=== PATIENT | female | born 1965 | race African-American/Black ===

== ENCOUNTER 2017-04-08 18:41 | Emergency (ER) | payer MEDICAID ==
[~2017-04-08] VITALS: Ht 160 cm; Wt 79.4 kg
[~2017-04-08 18:41] MED LIST: BACL10TA; GABA1POW27; HYDR25TA4; LOSA25TA9; POTASSIUM; TRAM50TA2
[2017-04-08] MEDS ORDERED: cloNIDine HCL 0.1 MG TAB PO ONE (19:00)
[2017-04-08 20:29] LABS: Basophils # (auto) 0.1 uL; Basophils % (auto) 0.9 % (0.0-2.0); CONDITION Y; Eosinophils # (auto) 0.1 uL; Eosinophils % (auto) 0.9 % (0.0-7.0); Hematocrit 41.6 % (36.0-46.0); Hemoglobin 13.8 g/dL (12.2-16.2); Lymphocytes # (auto) 3.6 uL; Lymphocytes % (auto) 45.4 % (10.0-50.0); Mean Corpuscular Hemoglobin 28.2 pg (28.0-32.0); Mean Corpuscular Hgb Conc. 33.2 g/dL (32.0-36.0); Mean Corpuscular Volume 85.1 fL (80.0-100.0); Mean Platelet Volume 8.6 fL (7.4-10.4); Monocytes # (auto) 0.4 uL; Neutrophils # (auto) 3.8 uL; Neutrophils % (auto) 47.8 % (37.0-80.0); Platelet Count (auto) 330 10^3/uL (140-450); Red Cell Distribution Width 16.2 % (11.6-16.0)
[2017-04-08 20:52] LABS: Albumin 3.6 g/dL (3.4-5.0); Anion Gap 11 (5-15); Aspartate Aminotransferase 17 U/L (15-37); BUN/Creatinine Ratio 16.9; Blood Urea Nitrogen 15 mg/dL (7-18); Calcium 8.5 mg/dL (8.5-10.1); Carbon Dioxide 27 mmol/L (21-32); Chloride 108 mmol/L (98-107); GFR African American 86 mL/min; GFR Non-African American 71 mL/min; Glucose 97 mg/dL (74-106); Magnesium 2.5 mg/dL (1.6-2.6); Sodium 146 mmol/L (136-145)
[2017-04-08 20:57] LABS: Alkaline Phosphatase 116 U/L (45-117); Bilirubin, Total 0.2 mg/dL (0.2-1.0); Total Protein 7.5 g/dL (6.4-8.2)
[2017-04-08 23:47] VITALS: BP 147/92
== END 2017-04-08 23:50 | disposition home or self-care (01) ==
LOC: ER 18:42
DX: I10 Essential (primary) hypertension (principal); F41.9 Anxiety disorder, unspecified; F17.210 Nicotine dependence, cigarettes, uncomplicated; Z96.653 Presence of artificial knee joint, bilateral
CPT/HCPCS: 36415; 71020; 80053; 83735; 84484; 85025

== ENCOUNTER 2020-03-02 12:56 | Emergency (ER) | payer MEDICAID ==
[~2020-03-02] VITALS: Ht 160 cm; Wt 78.5 kg
[~2020-03-02 12:56] MED LIST changes: +LOSA25TA38; -LOSA25TA9
[2020-03-02] MEDS ORDERED: diphenhdrAMINE HCL 50 MG/1 ML VL IM ONE (16:00)
[2020-03-02] MEDS ORDERED: EPINEPHrine HCL 1 MG/1 ML AMP SC ONE (16:00)
[2020-03-02 16:30] VITALS: BP 142/96
== END 2020-03-02 16:45 | disposition home or self-care (01) ==
LOC: ER 12:56
DX: T78.40XA Allergy, unspecified, initial encounter (principal); E11.9 Type 2 diabetes mellitus without complications; I10 Essential (primary) hypertension; E78.5 Hyperlipidemia, unspecified; X58.XXXA Exposure to other specified factors, initial encounter
CPT/HCPCS: 96372; 99284; J0171; J1200

== ENCOUNTER 2022-09-13 18:50 | Inpatient (IN) | payer MEDICAID ==
[~2022-09-13] VITALS: Ht 160 cm; Wt 72.3 kg
[~2022-09-13 18:50] MED LIST changes: -GABA1POW27; +GABAPOW36
[2022-09-13] MEDS ORDERED: SODIUM CHLORIDE 0.9% 500 ML IVB ONE (20:00)
[2022-09-13 20:13] LABS: Basophils # (auto) 0 10 ^3/uL (0-0.2); Eosinophils # (auto) 0 10 ^3/uL (0-0.8); Hemoglobin 11.5 g/dL (12.2-16.2); Monocytes # (auto) 0.6 10 ^3/uL (0-1.3); Nucleated Red Blood Cells % 0.7 %
[2022-09-13 20:14] LABS: Basophils % (auto) 0.5 % (0.0-2.0); Hematocrit 37.6 % (36.0-46.0); Lymphocytes # (auto) 1.4 10 ^3/uL (0.4-5.4); Lymphocytes % (auto) 14.8 % (10.0-50.0); Mean Corpuscular Hemoglobin 24.4 pg (28.0-32.0); Mean Corpuscular Hgb Conc. 30.5 g/dL (32.0-36.0); Mean Corpuscular Volume 80.2 fL (80.0-100.0); Neutrophils # (auto) 7.7 10 ^3/uL (1.6-8.6); Neutrophils % (auto) 78.7 % (37.0-80.0); Red Blood Cells 4.69 10^6/uL (4.0-5.20); Red Cell Distribution Width 18.5 % (11.8-14.3); White Blood Cell 9.8 10^3/uL (4.4-10.8)
[2022-09-13 20:28] LABS: Albumin 2.4 g/dL (3.4-5.0); BUN/Creatinine Ratio 23.7; Calcium 8.8 mg/dL (8.5-10.1); Magnesium 2.2 mg/dL (1.6-2.6); Potassium 3.8 mmol/L (3.5-5.1)
[2022-09-13 20:30] LABS: Lactic Acid w/Reflex 4.2 mmol/L (0.4-2.0)
[2022-09-13 20:31] LABS: Bilirubin, Total 2.5 mg/dL (0.2-1.0); Total Protein 6.6 g/dL (6.4-8.2)
[2022-09-13] MEDS ORDERED: SODIUM CHLORIDE 0.9% 500 ML IV ONE (22:15)
[2022-09-13 23:07] LABS: Alcohol, Urine < 3.0 mg/dL (0-10); Amphetamine Screen, Urine NEGATIVE (NEGATIVE); Barbiturate Scree,Urine NEGATIVE (NEGATIVE); Benzodiazephine Screen, Urine NEGATIVE (NEGATIVE); Cannabinoid Screen, Urine NEGATIVE (NEGATIVE); Cocaine Screen, Urine POSITIVE (NEGATIVE); Opiate Scree,Urine NEGATIVE (NEGATIVE); Phencyclidine Screen, Urine NEGATIVE (NEGATIVE)
[2022-09-13 23:29] LABS: Urine Bacteria NONE SEEN /hpf (None Seen); Urine Blood Negative /uL (Negative); Urine Hyaline Cast MOD /lpf (0 - 2); Urine Mucus FEW (None Seen); Urine Specific Gravity 1.028 (1.001-1.035); Urine WBC 10 /hpf (0 - 5); Urine WBC Clumps PRESENT /hpf (None Seen)
[2022-09-13] MEDS ORDERED: LORazepam 2MG/ML-1ML VIAL ONE (23:35)
[2022-09-13] MEDS ORDERED: LORazepam 2MG/ML-1ML VIAL IV ONE (23:45)
[2022-09-14] MEDS ORDERED: diphenhdrAMINE HCL 50 MG/1 ML VL IV ONE (01:15)
[2022-09-14] MEDS ORDERED: ONDANSETRON HCL 4 MG/2 ML VIAL IV PRN (01:30)
[2022-09-14] MEDS ORDERED: MORPHINE SULFATE INJ 2 MG/ml SYRG IV PRN (01:30)
[2022-09-14] MEDS ORDERED: FUROSEMIDE 20 MG/2 ML VIAL IV ONE (01:30)
[2022-09-14] MEDS ORDERED: NITROGLYCERIN 0.4 MG SL TAB SL PRN (01:30)
[2022-09-14] MEDS: cefTRIAXone 1GM/50ML D5W 50 ML IV SCH (03:11)
[2022-09-14] MEDS: CLINDAMYCIN 600MG IV 50 ML IV SCH ×2 (06:00→14:17)
[2022-09-14] MEDS ORDERED: PANTOPRAZOLE 40 MG TAB PO SCH (10:00)
[2022-09-14] MEDS ORDERED: FUROSEMIDE 40 MG TAB PO SCH (10:00)
[2022-09-14] MEDS ORDERED: LOSARTAN POTASSIUM 25 MG TAB PO SCH (10:00)
[2022-09-14] MEDS ORDERED: CARVEDILOL 3.125 MG TAB PO ONE (10:15)
[2022-09-14] MEDS ORDERED: FUROSEMIDE 40 MG/4 ML VIAL IV ONE (10:15)
[2022-09-14] MEDS: ENOXAPARIN SOD 40 MG/0.4 ML SYRINGE SC SCH (10:32)
[2022-09-14 13:19] LABS: Basophils # (auto) 0 10 ^3/uL (0-0.2); Eosinophils # (auto) 0 10 ^3/uL (0-0.8); Hematocrit 41.3 % (36.0-46.0); Mean Corpuscular Volume 82.9 fL (80.0-100.0); Monocytes # (auto) 0.7 10 ^3/uL (0-1.3); Red Blood Cells 4.98 10^6/uL (4.0-5.20)
[2022-09-14 13:21] LABS: Basophils % (auto) 0.1 % (0.0-2.0); Eosinophils % (auto) 0.1 % (0.0-7.0); Lymphocytes # (auto) 1.4 10 ^3/uL (0.4-5.4); Lymphocytes % (auto) 9.3 % (10.0-50.0); Monocytes % (auto) 4.8 % (0.0-12.0); Neutrophils # (auto) 12.5 10 ^3/uL (1.6-8.6); Neutrophils % (auto) 85.7 % (37.0-80.0); Nucleated Red Blood Cells % 0.8 %; Red Cell Distribution Width 18.5 % (11.8-14.3); White Blood Cell 14.6 10^3/uL (4.4-10.8)
[2022-09-14] MEDS: PANTOPRAZOLE 40 MG/10 ML VIAL INJ IV SCH (13:25)
[2022-09-14 15:06] LABS: Calcium 8.8 mg/dL (8.5-10.1); Potassium 4.2 mmol/L (3.5-5.1)
[2022-09-14 15:09] LABS: BUN/Creatinine Ratio 24.6
[2022-09-14 16:02] LABS: Folate (Folic Acid) > 24.00 ng/mL (5.38-24)
[2022-09-14] MEDS: FUROSEMIDE 40 MG/4 ML VIAL IV SCH (18:27)
[2022-09-14] MEDS ORDERED: LORazepam 2MG/ML-1ML VIAL IV PRN (21:15)
[2022-09-14 22:00] VITALS: BP 153/115
[2022-09-14] MEDS: ATORVASTATIN 20 MG TAB PO SCH (22:00)
[2022-09-14] MEDS: CARVEDILOL 3.125 MG TAB PO SCH (22:00)
[2022-09-14 22:14] LABS: Cholesterol 66 mg/dL (< 200)
[2022-09-14 22:17] LABS: HDL Cholesterol 16 mg/dL (40-59); LDL Cholesterol 51 mg/dL (< 100); Triglycerides 102 mg/dL (< 150)
[2022-09-14 22:28] VITALS: BP 153/115
[2022-09-15] MEDS: cefTRIAXone 1GM/50ML D5W 50 ML IV SCH ×2 (01:23→23:53)
[2022-09-15] MEDS: CLINDAMYCIN 600MG IV 50 ML IV SCH ×4 (01:23→22:25)
[2022-09-15 05:00] VITALS: BP 142/97
[2022-09-15] MEDS: FUROSEMIDE 40 MG/4 ML VIAL IV SCH (05:43)
[2022-09-15 08:00] VITALS: BP 132/88
[2022-09-15 09:00] VITALS: BP 132/90
[2022-09-15] MEDS: PANTOPRAZOLE 40 MG/10 ML VIAL INJ IV SCH (09:09)
[2022-09-15] MEDS: CLOPIDOGREL BISULFATE 75 MG TAB PO SCH (09:15)
[2022-09-15] MEDS: LOSARTAN POTASSIUM 25 MG TAB PO SCH (09:16)
[2022-09-15] MEDS: CARVEDILOL 3.125 MG TAB PO SCH ×2 (09:17→22:28)
[2022-09-15] MEDS: ENOXAPARIN SOD 40 MG/0.4 ML SYRINGE SC SCH (09:17)
[2022-09-15] MEDS: DAKINS QUARTER STR 0.125% (NaHypochlorite) 473 ML TOPICAL SOL TOP SCH ×2 (09:18→22:33)
[2022-09-15 10:20] LABS: Albumin 2.6 g/dL (3.4-5.0); Calcium 8.6 mg/dL (8.5-10.1); Potassium 3.6 mmol/L (3.5-5.1)
[2022-09-15 10:24] LABS: BUN/Creatinine Ratio 28.3; Bilirubin, Total 2.1 mg/dL (0.2-1.0); Total Protein 6.3 g/dL (6.4-8.2)
[2022-09-15] MEDS ORDERED: HALOPERIDOL LACTATE 5 MG/ML INJ VIAL IM ONE (11:15)
[2022-09-15] MEDS ORDERED: OME20T PO (12:38)
[2022-09-15] MEDS ORDERED: PERCOT PA (12:38)
[2022-09-15] MEDS ORDERED: ARIP1TAB7 PO (12:38)
[2022-09-15] MEDS ORDERED: GABA300C10 PO (12:38)
[2022-09-15] MEDS ORDERED: HYDR25TA5 PO (12:38)
[2022-09-15] MEDS ORDERED: HYDR-3682 PO (12:38)
[2022-09-15] MEDS ORDERED: ACET120S38 PO (12:45)
[2022-09-15] MEDS ORDERED: PREG75CA PO (12:45)
[2022-09-15] MEDS ORDERED: LORA-622 PO (12:45)
[2022-09-15] MEDS ORDERED: CYCL-839 PO (12:45)
[2022-09-15] MEDS ORDERED: AMLO-489 PO (12:45)
[2022-09-15] MEDS ORDERED: GEMF-19 PO (12:45)
[2022-09-15] MEDS ORDERED: MELO1TAB56 PO (12:45)
[2022-09-15] MEDS ORDERED: METF-370 PO (12:45)
[2022-09-15] MEDS ORDERED: GLIM-5 PO (12:45)
[2022-09-15] MEDS ORDERED: BACL10TA PO (12:50)
[2022-09-15] MEDS ORDERED: CHOL20007 PO (12:50)
[2022-09-15 12:58] LABS: Basophils # (auto) 0 10 ^3/uL (0-0.2); Basophils % (auto) 0.2 % (0.0-2.0); Eosinophils # (auto) 0 10 ^3/uL (0-0.8); Hematocrit 36.4 % (36.0-46.0); Lymphocytes # (auto) 1.2 10 ^3/uL (0.4-5.4); Lymphocytes % (auto) 10.4 % (10.0-50.0); Mean Corpuscular Hemoglobin 24.4 pg (28.0-32.0); Mean Corpuscular Hgb Conc. 30.1 g/dL (32.0-36.0); Monocytes % (auto) 8.8 % (0.0-12.0); Neutrophils # (auto) 9.5 10 ^3/uL (1.6-8.6); Neutrophils % (auto) 80.6 % (37.0-80.0); Nucleated Red Blood Cells % 0.5 %; Red Cell Distribution Width 18.5 % (11.8-14.3); White Blood Cell 11.8 10^3/uL (4.4-10.8)
[2022-09-15 16:58] VITALS: BP 135/87
[2022-09-15 21:47] VITALS: BP 116/78
[2022-09-15] MEDS: ATORVASTATIN 20 MG TAB PO SCH (22:28)
[2022-09-16] MEDS: HALOPERIDOL LACTATE 5 MG/ML INJ VIAL IM PRN (01:52)
[2022-09-16 04:46] VITALS: BP 118/68
[2022-09-16] MEDS: EMPAGLIFLOZIN 10 MG TAB PO SCH (06:14)
[2022-09-16] MEDS: CLINDAMYCIN 600MG IV 50 ML IV SCH ×3 (06:15→23:10)
[2022-09-16 09:12] VITALS: BP 119/80
[2022-09-16] MEDS: CARVEDILOL 3.125 MG TAB PO SCH ×2 (11:03→23:12)
[2022-09-16] MEDS: LOSARTAN POTASSIUM 25 MG TAB PO SCH (11:07)
[2022-09-16] MEDS: PANTOPRAZOLE 40 MG/10 ML VIAL INJ IV SCH (11:07)
[2022-09-16] MEDS: ENOXAPARIN SOD 40 MG/0.4 ML SYRINGE SC SCH (11:07)
[2022-09-16] MEDS: CLOPIDOGREL BISULFATE 75 MG TAB PO SCH (11:07)
[2022-09-16] MEDS: DAKINS QUARTER STR 0.125% (NaHypochlorite) 473 ML TOPICAL SOL TOP SCH ×2 (11:18→23:45)
[2022-09-16 13:00] VITALS: BP 114/73
[2022-09-16 17:29] LABS: Calcium 7.7 mg/dL (8.5-10.1); Magnesium 1.8 mg/dL (1.6-2.6)
[2022-09-16 17:31] LABS: Phosphorus 2.7 mg/dL (2.5-4.90)
[2022-09-16 17:33] LABS: Potassium 2.8 mmol/L (3.5-5.1)
[2022-09-16 18:00] VITALS: BP 93/69
[2022-09-16] MEDS ORDERED: POTASSIUM CHLORIDE 60 MEQ, LIDOCAINE 1% (LOCAL ANESTH.) 6 ML in SODIUM CHL 0.9% 500 ML IV ONE (19:30)
[2022-09-16] MEDS ORDERED: POTASSIUM EFFERVESENT TAB 25 MEQ PO ONE (19:30)
[2022-09-16] MEDS ORDERED: FUROSEMIDE 40 MG/4 ML VIAL IV ONE (19:30)
[2022-09-16] MEDS: MAGNESIUM SULFATE 1GM/100ML 100 ML IV SCH ×2 (20:34→21:38)
[2022-09-16 21:34] VITALS: BP 138/94
[2022-09-16] MEDS: ATORVASTATIN 20 MG TAB PO SCH (23:11)
[2022-09-16] MEDS: cefTRIAXone 1GM/50ML D5W 50 ML IV SCH (23:44)
[2022-09-17] MEDS: HALOPERIDOL LACTATE 5 MG/ML INJ VIAL IM PRN ×2 (01:48→23:33)
[2022-09-17 04:59] VITALS: BP 120/68
[2022-09-17] MEDS: CLINDAMYCIN 600MG IV 50 ML IV SCH ×3 (05:35→22:00)
[2022-09-17] MEDS: EMPAGLIFLOZIN 10 MG TAB PO SCH (06:52)
[2022-09-17 09:12] VITALS: BP 112/77
[2022-09-17] MEDS: ENOXAPARIN SOD 40 MG/0.4 ML SYRINGE SC SCH (10:48)
[2022-09-17] MEDS: CLOPIDOGREL BISULFATE 75 MG TAB PO SCH (10:48)
[2022-09-17] MEDS: PANTOPRAZOLE 40 MG/10 ML VIAL INJ IV SCH (10:48)
[2022-09-17] MEDS: CARVEDILOL 3.125 MG TAB PO SCH ×2 (10:50→22:00)
[2022-09-17] MEDS: LOSARTAN POTASSIUM 25 MG TAB PO SCH (10:51)
[2022-09-17 13:00] VITALS: BP 110/75
[2022-09-17] MEDS: DOBUTamine 1000MCG/ML 250 ML IV SCH (13:15)
[2022-09-17 13:49] LABS: BUN/Creatinine Ratio 29.1; Calcium 7.9 mg/dL (8.5-10.1); Potassium 5.5 mmol/L (3.5-5.1)
[2022-09-17] MEDS: DAKINS QUARTER STR 0.125% (NaHypochlorite) 473 ML TOPICAL SOL TOP SCH ×2 (14:52→22:00)
[2022-09-17 17:00] VITALS: BP 92/64
[2022-09-17 22:00] VITALS: BP 129/84
[2022-09-17] MEDS: cefTRIAXone 1GM/50ML D5W 50 ML IV SCH (22:00)
[2022-09-17] MEDS: ATORVASTATIN 20 MG TAB PO SCH (22:00)
[2022-09-18 05:00] VITALS: BP 114/74
[2022-09-18] MEDS: CLINDAMYCIN 600MG IV 50 ML IV SCH ×2 (06:00→14:00)
[2022-09-18] MEDS: EMPAGLIFLOZIN 10 MG TAB PO SCH (06:23)
[2022-09-18 09:00] VITALS: BP 134/104
[2022-09-18] MEDS: PANTOPRAZOLE 40 MG/10 ML VIAL INJ IV SCH (10:00)
[2022-09-18] MEDS: LOSARTAN POTASSIUM 25 MG TAB PO SCH (10:41)
[2022-09-18] MEDS: CARVEDILOL 3.125 MG TAB PO SCH ×2 (10:41→21:12)
[2022-09-18] MEDS: CLOPIDOGREL BISULFATE 75 MG TAB PO SCH (10:41)
[2022-09-18] MEDS: ENOXAPARIN SOD 40 MG/0.4 ML SYRINGE SC SCH (10:42)
[2022-09-18] MEDS: DOBUTamine 1000MCG/ML 250 ML IV SCH (11:30)
[2022-09-18] MEDS: DAKINS QUARTER STR 0.125% (NaHypochlorite) 473 ML TOPICAL SOL TOP SCH ×2 (12:48→21:13)
[2022-09-18] MEDS: HALOPERIDOL LACTATE 5 MG/ML INJ VIAL IM PRN (12:57)
[2022-09-18 13:00] VITALS: BP 118/82
[2022-09-18] MEDS ORDERED: levoFLOXacin 500 MG TAB PO ONE (15:00)
[2022-09-18 15:59] LABS: Anion Gap 12 (5-15); Blood Urea Nitrogen 26 mg/dL (7-18); Calcium 8.1 mg/dL (8.5-10.1); Carbon Dioxide 29 mmol/L (21-32); Chloride 101 mmol/L (98-107); Potassium 3.1 mmol/L (3.5-5.1); Sodium 142 mmol/L (136-145)
[2022-09-18 16:03] LABS: GFR African American 80 mL/min; GFR Non-African American 66 mL/min; Glucose 101 mg/dL (74-106)
[2022-09-18 16:11] LABS: Basophils # (auto) 0 10 ^3/uL (0-0.2); Basophils % (auto) 0.1 % (0.0-2.0); Eosinophils # (auto) 0 10 ^3/uL (0-0.8); Eosinophils % (auto) 0.2 % (0.0-7.0); Hematocrit 36.2 % (36.0-46.0); Hemoglobin 11.4 g/dL (12.2-16.2); Lymphocytes # (auto) 1.2 10 ^3/uL (0.4-5.4); Lymphocytes % (auto) 12.4 % (10.0-50.0); Mean Corpuscular Hemoglobin 24.4 pg (28.0-32.0); Mean Corpuscular Hgb Conc. 31.6 g/dL (32.0-36.0); Mean Corpuscular Volume 77.2 fL (80.0-100.0); Monocytes # (auto) 0.8 10 ^3/uL (0-1.3); Monocytes % (auto) 8.2 % (0.0-12.0); Neutrophils # (auto) 7.5 10 ^3/uL (1.6-8.6); Neutrophils % (auto) 79.1 % (37.0-80.0); Nucleated Red Blood Cells % 0.4 %; Red Blood Cells 4.69 10^6/uL (4.0-5.20); White Blood Cell 9.5 10^3/uL (4.4-10.8)
[2022-09-18] MEDS: AMPICILLIN INJ 1 GM in SODIUM CHL 0.9% 50 ML IV SCH (18:00)
[2022-09-18] MEDS: ATORVASTATIN 20 MG TAB PO SCH (21:12)
[2022-09-18 22:00] VITALS: BP 133/86
[2022-09-19] MEDS: AMPICILLIN INJ 1 GM in SODIUM CHL 0.9% 50 ML IV SCH ×4 (02:01→17:57)
[2022-09-19] MEDS: HALOPERIDOL LACTATE 5 MG/ML INJ VIAL IM PRN (02:01)
[2022-09-19] MEDS ORDERED: LORazepam 2MG/ML-1ML VIAL IM ONE ×3 (02:15→02:30)
[2022-09-19 05:00] VITALS: BP 123/102
[2022-09-19] MEDS: EMPAGLIFLOZIN 10 MG TAB PO SCH (06:24)
[2022-09-19] MEDS ORDERED: MORPHINE SULFATE INJ 2 MG/ml SYRG IV PRN ×2 (06:45→07:00)
[2022-09-19] MEDS ORDERED: HYDROcodone-ACET 5/325MG TAB PO PRN (07:00)
[2022-09-19 08:00] VITALS: BP 133/91
[2022-09-19] MEDS: levoFLOXacin 500 MG TAB PO SCH (09:26)
[2022-09-19] MEDS: CLOPIDOGREL BISULFATE 75 MG TAB PO SCH (09:27)
[2022-09-19] MEDS: CARVEDILOL 3.125 MG TAB PO SCH ×2 (09:27→22:48)
[2022-09-19] MEDS: LOSARTAN POTASSIUM 25 MG TAB PO SCH (09:28)
[2022-09-19] MEDS: DAKINS QUARTER STR 0.125% (NaHypochlorite) 473 ML TOPICAL SOL TOP SCH ×2 (09:29→22:49)
[2022-09-19] MEDS: PANTOPRAZOLE 40 MG/10 ML VIAL INJ IV SCH (09:29)
[2022-09-19] MEDS: ENOXAPARIN SOD 40 MG/0.4 ML SYRINGE SC SCH (09:29)
[2022-09-19] MEDS: DOBUTamine 1000MCG/ML 250 ML IV SCH (11:30)
[2022-09-19 12:00] VITALS: BP 118/89
[2022-09-19 16:00] VITALS: BP 127/86
[2022-09-19 22:00] VITALS: BP 124/80
[2022-09-19] MEDS: LORazepam 2MG/ML-1ML VIAL IV PRN (22:30)
[2022-09-19] MEDS: TEMAZEPAM 15 MG CAP PO PRN (22:30)
[2022-09-19] MEDS: ATORVASTATIN 20 MG TAB PO SCH (22:48)
[2022-09-20] MEDS: AMPICILLIN INJ 1 GM in SODIUM CHL 0.9% 50 ML IV SCH ×4 (01:42→17:41)
[2022-09-20 05:00] VITALS: BP 117/75
[2022-09-20] MEDS: EMPAGLIFLOZIN 10 MG TAB PO SCH (06:36)
[2022-09-20 09:00] VITALS: BP 111/51
[2022-09-20] MEDS: levoFLOXacin 500 MG TAB PO SCH (09:21)
[2022-09-20] MEDS: CLOPIDOGREL BISULFATE 75 MG TAB PO SCH (09:22)
[2022-09-20] MEDS: CARVEDILOL 3.125 MG TAB PO SCH ×2 (09:22→22:22)
[2022-09-20] MEDS: LOSARTAN POTASSIUM 25 MG TAB PO SCH (09:23)
[2022-09-20] MEDS: ENOXAPARIN SOD 40 MG/0.4 ML SYRINGE SC SCH (09:23)
[2022-09-20] MEDS: PANTOPRAZOLE 40 MG/10 ML VIAL INJ IV SCH (09:23)
[2022-09-20] MEDS: DAKINS QUARTER STR 0.125% (NaHypochlorite) 473 ML TOPICAL SOL TOP SCH ×2 (09:24→22:22)
[2022-09-20] MEDS: DOBUTamine 1000MCG/ML 250 ML IV SCH (11:49)
[2022-09-20 13:00] VITALS: BP 111/93
[2022-09-20 16:59] VITALS: BP 132/86
[2022-09-20] MEDS: HALOPERIDOL LACTATE 5 MG/ML INJ VIAL IM PRN (17:32)
[2022-09-20 21:33] VITALS: BP 106/74
[2022-09-20] MEDS: ATORVASTATIN 20 MG TAB PO SCH (22:22)
[2022-09-20] MEDS: LORazepam 2MG/ML-1ML VIAL IV PRN (22:59)
[2022-09-21] MEDS: AMPICILLIN INJ 1 GM in SODIUM CHL 0.9% 50 ML IV SCH ×4 (00:30→17:59)
[2022-09-21 04:54] VITALS: BP 131/84
[2022-09-21] MEDS: EMPAGLIFLOZIN 10 MG TAB PO SCH (06:55)
[2022-09-21 08:00] VITALS: BP 135/89
[2022-09-21] MEDS: PANTOPRAZOLE 40 MG/10 ML VIAL INJ IV SCH (09:13)
[2022-09-21] MEDS: ENOXAPARIN SOD 40 MG/0.4 ML SYRINGE SC SCH (09:13)
[2022-09-21] MEDS: levoFLOXacin 500 MG TAB PO SCH (09:13)
[2022-09-21] MEDS: CLOPIDOGREL BISULFATE 75 MG TAB PO SCH (09:14)
[2022-09-21] MEDS: CARVEDILOL 3.125 MG TAB PO SCH ×2 (09:14→22:24)
[2022-09-21] MEDS: DAKINS QUARTER STR 0.125% (NaHypochlorite) 473 ML TOPICAL SOL TOP SCH ×2 (09:15→22:25)
[2022-09-21] MEDS: LOSARTAN POTASSIUM 25 MG TAB PO SCH (09:15)
[2022-09-21 10:03] LABS: Basophils # (auto) 0 10 ^3/uL (0-0.2); Eosinophils # (auto) 0 10 ^3/uL (0-0.8); Monocytes # (auto) 0.5 10 ^3/uL (0-1.3)
[2022-09-21 10:04] LABS: Basophils % (auto) 0.1 % (0.0-2.0); Eosinophils % (auto) 0.3 % (0.0-7.0); Hematocrit 37.6 % (36.0-46.0); Hemoglobin 11.8 g/dL (12.2-16.2); Lymphocytes % (auto) 13.8 % (10.0-50.0); Mean Corpuscular Hemoglobin 24.5 pg (28.0-32.0); Mean Corpuscular Hgb Conc. 31.5 g/dL (32.0-36.0); Mean Corpuscular Volume 77.8 fL (80.0-100.0); Monocytes % (auto) 7.4 % (0.0-12.0); Neutrophils # (auto) 5.5 10 ^3/uL (1.6-8.6); Neutrophils % (auto) 78.4 % (37.0-80.0); Nucleated Red Blood Cells % 0.1 %; Red Blood Cells 4.83 10^6/uL (4.0-5.20); Red Cell Distribution Width 18.3 % (11.8-14.3)
[2022-09-21 10:33] LABS: Calcium 8.3 mg/dL (8.5-10.1)
[2022-09-21 10:43] LABS: Potassium 2.9 mmol/L (3.5-5.1)
[2022-09-21] MEDS ORDERED: POTASSIUM CHL 20 Meq TABLET PO ONE (10:45)
[2022-09-21] MEDS: LORazepam 2MG/ML-1ML VIAL IV PRN (11:58)
[2022-09-21 12:00] VITALS: BP 104/81
[2022-09-21 16:00] VITALS: BP 134/89
[2022-09-21 22:00] VITALS: BP 120/87
[2022-09-21] MEDS: ATORVASTATIN 20 MG TAB PO SCH (22:25)
[2022-09-21] MEDS ORDERED: IPRATROPIUM BROM 0.5 MG/2.5ML INH SOL NEB ONE (22:45)
[2022-09-21] MEDS ORDERED: ALBUTEROL SULF 2.5 MG/0.5ML(0.5%) NEB SOLN NEB ONE (22:45)
[2022-09-21] MEDS ORDERED: ALBUTEROL MEDNEB 2.5 mg/3ml NEB ONE (22:54)
[2022-09-21] MEDS: TEMAZEPAM 15 MG CAP PO PRN (23:09)
[2022-09-22] MEDS: AMPICILLIN INJ 1 GM in SODIUM CHL 0.9% 50 ML IV SCH ×4 (00:26→18:39)
[2022-09-22] MEDS: LORazepam 2MG/ML-1ML VIAL IV PRN (00:27)
[2022-09-22 01:00] VITALS: BP 120/87
[2022-09-22 05:00] VITALS: BP 114/79
[2022-09-22] MEDS ORDERED: IPRATROPIUM BROM 0.5 MG/2.5ML INH SOL NEB SCH (06:00)
[2022-09-22] MEDS ORDERED: IPRATROPIUM BROM 0.5 MG/2.5ML INH SOL NEB PRN (06:00)
[2022-09-22] MEDS ORDERED: ALBUTEROL SULF 2.5 MG/0.5ML(0.5%) NEB SOLN NEB SCH (06:00)
[2022-09-22] MEDS ORDERED: ALBUTEROL SULF 2.5 MG/0.5ML(0.5%) NEB SOLN NEB PRN (06:00)
[2022-09-22] MEDS: EMPAGLIFLOZIN 10 MG TAB PO SCH (06:27)
[2022-09-22 09:00] VITALS: BP 128/88
[2022-09-22] MEDS: ENOXAPARIN SOD 40 MG/0.4 ML SYRINGE SC SCH (10:22)
[2022-09-22] MEDS: CLOPIDOGREL BISULFATE 75 MG TAB PO SCH ×2 (10:22→10:46)
[2022-09-22] MEDS: PANTOPRAZOLE 40 MG/10 ML VIAL INJ IV SCH (10:22)
[2022-09-22] MEDS: levoFLOXacin 500 MG TAB PO SCH ×2 (10:22→10:46)
[2022-09-22] MEDS: LOSARTAN POTASSIUM 25 MG TAB PO SCH ×2 (10:24→10:46)
[2022-09-22] MEDS: CARVEDILOL 3.125 MG TAB PO SCH ×2 (10:24→10:46)
[2022-09-22] MEDS: DAKINS QUARTER STR 0.125% (NaHypochlorite) 473 ML TOPICAL SOL TOP SCH (10:30)
[2022-09-22] MEDS ORDERED: AMPI500C8 PO (11:17)
[2022-09-22] MEDS ORDERED: LEVO500T31 PO (11:17)
[2022-09-22 13:00] VITALS: BP 119/89
[2022-09-22 16:45] VITALS: BP 120/87
== END 2022-09-22 18:15 | disposition home health service (06) | DRG 45 ==
LOC: EDBD 18:50 → EDUNIT# 18:50 → ER 18:54 → TELE 09-14 01:22 → TELE-EAST 09-14 22:05
PROVIDERS: ADMIT Nurse Practitioner; ATTEND Internal Medicine
DX: I63.9 Cerebral infarction, unspecified (principal); J96.01 Acute respiratory failure with hypoxia; G92.8 Other toxic encephalopathy; I50.41 Acute combined systolic (congestive) and diastolic (congestive) heart failure; E43 Unspecified severe protein-calorie malnutrition; L03.116 Cellulitis of left lower limb; E11.52 Type 2 diabetes mellitus with diabetic peripheral angiopathy with gangrene; I42.8 Other cardiomyopathies; G93.1 Anoxic brain damage, not elsewhere classified; E11.22 Type 2 diabetes mellitus with diabetic chronic kidney disease; I13.0 Hypertensive heart and chronic kidney disease with heart failure and stage 1 through stage 4 chronic kidney disease, or unspecified chronic kidney disease; F17.210 Nicotine dependence, cigarettes, uncomplicated; N18.9 Chronic kidney disease, unspecified; E11.42 Type 2 diabetes mellitus with diabetic polyneuropathy; Z20.822 Contact with and (suspected) exposure to COVID-19; E11.621 Type 2 diabetes mellitus with foot ulcer; E11.69 Type 2 diabetes mellitus with other specified complication; N30.00 Acute cystitis without hematuria; F14.10 Cocaine abuse, uncomplicated; L97.519 Non-pressure chronic ulcer of other part of right foot with unspecified severity; Z86.73 Personal history of transient ischemic attack (TIA), and cerebral infarction without residual deficits; Z88.6 Allergy status to analgesic agent; Z79.899 Other long term (current) drug therapy; Z91.199 Patient's noncompliance with other medical treatment and regimen due to unspecified reason; Z68.28 Body mass index [BMI] 28.0-28.9, adult
CPT/HCPCS: 36415; 36600; 70450; 71045; 73630; 73700; 80048; 80053; 80061; 80307; 81001; 82140; 82607; 82746; 82805; 83036; 83605; 83735; 83880; 84100; 84443; 85025; 87040; 87077; 87186; 87205; 87426; 93005; 93306; 93926; 93970; 94640; 95819; 96361; 96365; 96367; 96372; 96375; 96376; 97110; 97116; 97163; 97530; C9113; G0378; J0696; J2001; J3490